=== PATIENT | male | born 2005 | race Two or more races ===

== ENCOUNTER 2025-02-14 12:18 | Emergency (ER) | payer MEDICAID, OTHER ==
[~2025-02-14] VITALS: Ht 177.8 cm; Wt 68.9 kg
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
[2025-02-14] MEDS: HYDROcodone-ACET 10/325MG TAB PO ONE (13:18)
[2025-02-14] MEDS: NEOMYCIN-BACITRACIN-POLYM UNITDOSE PKG TOP OINT TOP ONE (13:19)
[2025-02-14] MEDS ORDERED: NEOMOIN6 EX (14:27)
[2025-02-14] MEDS ORDERED: IBU600T PO (14:27)
[2025-02-14 14:34] VITALS: BP 105/51; TEMP 97.9
[2025-02-14 14:35] VITALS: PULSE 68; RESP 16; O2SAT 97
== END 2025-02-14 14:56 | disposition home or self-care (01) ==
LOC: ER 12:18
DX: T20.24XA Burn of second degree of nose (septum), initial encounter (principal); T20.26XA Burn of second degree of forehead and cheek, initial encounter; W86.1XXA Exposure to industrial wiring, appliances and electrical machinery, initial encounter; Y93.89 Activity, other specified; Y92.89 Other specified places as the place of occurrence of the external cause; Y99.8 Other external cause status
CPT/HCPCS: 16020